=== PATIENT | female | born 1945 | race Caucasian/White ===

== ENCOUNTER → 2017-04-26 | Day surgery (SDC) | payer MEDICARE, BC ==
[~2017-04-26] MED LIST: AMLO5TAB22 PO; ASPI81TA82 PO; BLADTAB PO; CALCCHW25 PO; ESTR30V; FISH1000 PO; LEVO75TA3 PO; LIDOCAINE HCL 1% PF 30 ML VIAL INFIL ONE; MORP1INJ45 PO; OMEP20TA39 PO; PROPOFOL 200 MG/20 ML AMP IV ONE; RALO1TAB; SODIUM CHLORIDE 0.9% 10 ML VIAL ONE; THER650C PO; TRIAMCINOLONE ACETONIDE 40 MG/ML VIAL NERV BLOCK ONE; VITA200017 PO; [UNRECOGNIZED DRUG - CODE]
--- NOTE | 2017-04-30 11:57 | M6 ---
cc: Perla KINCAID DATE: 04/26/2017. DATE OF : 1945 PROCEDURE PERFORMED: Fluoroscopically-guided T9-T10 interlaminar epidural steroid injection. DESCRIPTION OF THE PROCEDURE IN DETAIL: History and physical was completed and signed. Consent was signed. Procedure site was marked. Medications were listed and reconciled. Pain score was recorded. Allergies were noted. Time out was taken. Fluoroscopy time was recorded where applicable. Sedation was administered or directed by Dr. Kincaid. The patient was given oxygen. The patient was monitored by a registered nurse. Total procedure time was greater than 15 minutes IV was started, blood pressure cuff, pulse oximeter and EKG were applied. The patient was placed in the prone position on a Jose table and sedated with small amounts of propofol titrated to effect. Vital signs were monitored and remained stable throughout the procedure. The thoracic area was prepped with alcohol and 10% Betadine solution and draped with sterile drapes. Fluoroscopy was used to examine the thoracic vertebrae looking for a translaminar space that would be easily entered, and the T9-T10 interlaminar space looked most appropriate. The skin was infiltrated with 1% Xylocaine using a 27-gauge needle and then a 3-1/2-inch 18-gauge Watters needle was advanced using fluoroscopic guidance and the [id number] technique into the epidural space at T9-T10 slightly to the left of the midline. There was negative aspiration for blood or any other type of fluid and the patient was given 8 mL of 0.5% Xylocaine which contained 60 mg of Kenalog. Following this, the patient was taken to the recovery room with stable vital signs neurologically intact. She will be evaluated immediately and with followup to determine if she has a subjective decrease in her usual pain and a corresponding objective increase in her functional capabilities. MD CHELLE Vidales/JUSTIN /8:50 AM /11:49 AM
== END | disposition home or self-care (01) ==
LOC: PHSDC 06:58
PROVIDERS: ATTEND Pain Medicine Interventional Pain Medicine
DX: M54.6 Pain in thoracic spine (principal)
CPT/HCPCS: 62321; 99152; J3301

== ENCOUNTER → 2017-05-08 | Day surgery (SDC) | payer MEDICARE, BC ==
[~2017-05-08] MED LIST changes: +AMLO5TAB2 PO; +ASPI1TAB57 PO; +CHOL1CHW5 PO; +CRAN500C9 PO; +LEVO88TA2 PO; +MEPERIDINE HCL 25 MG/ML VIAL IV ONE; +MORP1TAB24 PO; +RALO1TAB PO; +SM CCHW2 PO; +[UNRECOGNIZED DRUG - CODE] PO
--- NOTE | 2017-05-08 09:30 | M6 ---
cc: Perla Kincaid MD, Paul M MD 05/08/2017 Corrected Copy: 05/09/17 PROCEDURE: Fluoroscopically guided T10 interlaminar epidural steroid injection. PREPROCEDURE NOTE: On 04/26/2017, we performed an initial T9-T10 interlaminar epidural steroid injection on Ms. Ramachandran. Prior to that procedure, she was having thoracic pain radiating around her chest wall. She comes today to state that overall she is much better. The circumferential radicular pain is pretty much gone, and her only complaint is pain in the mid thoracic area just to the right of the midline. Of course, we do not know how long this relief is going to last.. Today we are giving her a second procedure, and then we will just follow her on an as needed basis. History and physical was completed and signed. Consent was signed. Procedure site was marked. Medications were listed and reconciled. Pain score was recorded. Allergies were noted. Time out was taken. Fluoroscopy time was recorded where applicable. Sedation was administered or directed by Dr. Kincaid. The patient was given oxygen. The patient was monitored by a registered nurse. Total procedure time was greater than 15 minutes. IV was started. Blood pressure cuff, pulse oximeter and EKG were applied. The patient was placed in the prone position on a Jose table, surveyed with small amounts of propofol, titrated to effect. Vital signs were monitored and remained stable throughout the procedure. Thoracic area was prepped with alcohol and 10% betadine solution, draped with sterile drapes. Fluoroscopy was used to visualize the T9-T10 interlaminar space. The skin was infiltrated with 1% Xylocaine using a 27 gauge needle. Then a 3-1/2 inch 18 gauge Watters needle was advanced using fluoroscopic guidance and the loss or resistance technique into the epidural space at T9-T10, slightly to the right of the midline. There was negative aspiration for blood or any other type of fluid, and the patient was given 6 mL of 0.5% Xylocaine, 60 mg of Kenalog. Following this, the patient was taken to the recovery room with stable vital signs, neurologically intact. She will be evaluated immediately and will follow up to determine if she has a subjective decrease in her usual pain and a corresponding objective increase in her functional capabilities. W. MD CHELLE Lawrence/AXEL , 08:53 AM , 09:28 AM
== END | disposition home or self-care (01) ==
LOC: PHSDC 06:50
PROVIDERS: ATTEND Pain Medicine Interventional Pain Medicine
DX: M54.6 Pain in thoracic spine (principal)
CPT/HCPCS: 62321; 99152; J2175; J3301